=== PATIENT | male | born 1995 | race Caucasian/White ===

== ENCOUNTER 2021-10-23 17:02 | Emergency (ER) | payer OTHER ==
[~2021-10-23] VITALS: Ht 182.9 cm; Wt 86.2 kg
[2021-10-23] MEDS ORDERED: SODIUM CHLORIDE IRR BOTTLE IR ONE (17:30)
--- NOTE | 2021-10-23 17:30 | NUR ---
ARRIVAL PRESENTED TO ED RM#5 AMBULATORY WITH C/O HEAD INJURY/LACERATION. VS OBTAINED. DR. SERVIN NOTIFIED OF PATIENT ARRIVAL.
[2021-10-23 17:37] VITALS: BP_SYST 152; BP_SYST 153; BP_DIAS 104; BP_DIAS 110
[2021-10-23 17:44] VITALS: BP_SYST 152
[2021-10-23] MEDS ORDERED: XYLOCAINE 2%-EPI 1:100,000 ID STA (17:44)
--- NOTE | 2021-10-23 17:49 | ER.PDOC ---
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 No LOC, did have bleeding at the site. States last tetanus was in 2011. No other complaints at this time. No neck pain, no blurred vision, no bleeding from any orifice. No confusion. No other complaints Occurred: just prior to arrival Where: work Severity: mild Location: parietal Method of Injury: direct blow Associated symptoms: Dazed Remembers: injury, coming to hospital Past Medical History Medical History: no pertinent history Surgical History: no surgical history Social History Alcohol Use: heavy Drug Use: none Review of Systems All Other Systems: Reviewed and Negative Physical Exam General Appearance: Alert, No Apparent Distress, WD/WN Head: Other (Very superficial abrasion to the top of her head, linear, 1 cm in length) Eye: PERRL, EOMI, No nystagmus ENT: Nml external inspection, Pharynx nml Neck: non-tender, painless ROM, trachea midline Cardiovascular/Respiratory: Regular Rate, Rhythm, No M/R/G, Normal Peripheral Pulses, No JVD, Normal Breath Sounds, No Respiratory Distress Gastrointestinal: Soft Back: Normal Inspection, No Vertebral Tenderness Extremities: Normal Range of Motion, Non-Tender, Normal Inspection, No Pedal Edema, No Calf Tenderness, Normal Capillary Refill NEURO/PSYCH: Alert, Oriented x3, Cooperative, Interactive, Mood/affect nml Cranial Nerves: Normal Hearing, Normal Speech, PERRL Coordination/Gait: Normal Gait Motor/Sensory: No Motor Deficit, No Sensory Deficit Skin: Normal Color, Warm/Dry Lymphatic: No Adenopathy Results/Orders Results/Orders Orders - EJESIEME,BANG C DO Sodium Chloride Irrig Solution (Sodium C (10/23/21 17:30) Vital Signs Date Time Temp Pulse Resp B/P (MAP) Pulse Ox O2 Delivery O2 Flow Rate FiO2 10/23/21 17:37 98.6 95 17 100 10/23/21 17:37 98.6 95 17 10/23/21 17:37 98.6 95 17 152/104 (120) 100 Room Air Progress Progress wound cleaned and irrigated extensively. Dressing applied. Patient states that he does not want a head CT at this time and patient is low risk and accordance to PECARN head CT rule. Will update tetanus. Follow-up with primary care doctor for repeat evaluation of patient's wound to his head ER DEPART Departure Time of Disposition: 17:48 Disposition: 01 HOME / SELF CARE / HOMELESS Impression: Primary Impression: Head injury Condition: Stable Patient Instructions: Head Injury, Adult, [id number] Referrals: PCP,UNKNOWN (PCP) PRIMARY CARE PROVIDER WILD KHANNA MD PRIMARY CARE PROVIDER Additional Instructions: Follow-up with primary doctor in 3 to 5 days for repeat wound check. You can take Tylenol [id number] for any headache or pain relief. Clean the wound and keep it dry, may apply topical Neosporin as needed Duration or Time Spent with Pa: 15 min BANG SERVIN DO Oct 23, 2021 17:49
[2021-10-23] MEDS ORDERED: BOOSTRIX IM ONE ×2 (17:50→18:00)
== END 2021-10-23 17:56 | disposition home or self-care (01) ==
LOC: ER 17:02
DX: S00.01XA Abrasion of scalp, initial encounter (principal); W50.0XXA Accidental hit or strike by another person, initial encounter; Y93.89 Activity, other specified; Y92.89 Other specified places as the place of occurrence of the external cause; Y99.0 Civilian activity done for income or pay
CPT/HCPCS: 90471; 90715; 99283; A4217